=== PATIENT | female | born 1995 | race Caucasian/White ===

== ENCOUNTER 2022-06-11 13:22 | Emergency (ER) | payer BC ==
[~2022-06-11] VITALS: Ht 167.6 cm; Wt 75.0 kg
[2022-06-11 13:43] VITALS: BP 131/89
[2022-06-11] MEDS ORDERED: TETANUS, DIPHTHERIA, PERTUSSIS VAC/PF 0.5ML (>10YR OLD) IM ONE (14:30)
[2022-06-11] MEDS ORDERED: IBUP-2029 MT (15:24)
== END 2022-06-11 15:48 | disposition home or self-care (01) ==
LOC: ER 13:22
DX: S80.811A Abrasion, right lower leg, initial encounter (principal); M79.89 Other specified soft tissue disorders; R26.2 Difficulty in walking, not elsewhere classified; W17.89XA Other fall from one level to another, initial encounter; Y93.01 Activity, walking, marching and hiking; Y92.828 Other wilderness area as the place of occurrence of the external cause
CPT/HCPCS: 73590; 73610; 81025; 99284